=== PATIENT | female | born 1965 | race Caucasian/White ===

== ENCOUNTER 2023-08-15 16:09 | Observation (INO) | payer MEDICARE, MEDICAID, SELFPAY ==
--- NOTE | 2023-08-15 16:15 | PC.NURSE ---
Addendum entered by Viktoria Mckenzie RN 08/15/23 18:19: patient nonverbal and combative, unable to tolerate vitals upon arrival Original Note: patient nonverbal and combative, unable to tolerate vitals upon
--- NOTE | 2023-08-15 16:25 | USR_ITS ---
PROCEDURE INFORMATION: Exam: US Duplex Lower Extremity Veins, Bilateral Exam date and time: 08/15/2023 5:10 PM Age: 58 years old Clinical indication: Lymphedema; Lower extremity, bilateral; Additional info: Leg swelling TECHNIQUE: Imaging protocol: Real-time duplex ultrasound of the bilateral extremities with 2-D fleming scale, color Doppler flow and spectral waveform analysis including responses to compression and other maneuvers (when performed) with image documentation. Complete exam focused on the lower extremity veins. COMPARISON: No relevant prior studies available. FINDINGS: Right deep veins: Unremarkable. The common femoral, femoral, proximal profunda femoral, popliteal, posterior tibial and peroneal veins are patent without thrombus. Normal Doppler waveforms. Normal compressibility and/or augmentation response. Left deep veins: Unremarkable. The common femoral, femoral, proximal profunda femoral, popliteal, posterior tibial and peroneal veins are patent without thrombus. Normal Doppler waveforms. Normal compressibility and/or augmentation response. Superficial veins: Greater saphenous veins at the saphenofemoral junctions are patent bilaterally without thrombus. Soft tissues: Subcutaneous edema in the calves. US/CV venous duplex [facility] [id number] IMPRESSION: No sonographic evidence of deep venous thrombosis.
--- NOTE | 2023-08-15 16:47 | ED_ITS ---
Documented by User: Luis Bustamante DO 08/15/23 18:07 HPI - General Adult 2 General: Chief complaint: General Medical Stated complaint: SEAN WEEPING LEG WOUNDS; AUTISTIC Time Seen by Provider: 08/15/23 16:13 Source: patient and family Mode of arrival: EMS History of Present Illness: 58-year-old female who is severely autis tic presents emergency room with bilateral leg wounds and swelling. The most part she is nonverbal she understands acute expressive aphasia. He is very agitated and easily irritable at times combative. She mostly expresses things by yelling and screaming. She has had swelling along with drainage from excoriated wounds on the leg primarily on the right leg. No fever sweats or chills reported Relieving factors: none Exacerbating factors: none Associated symptoms: Deny chest pain, cough, diaphoresis, fevers/chills, rash or vomiting Treatments prior to arrival: none Review of Systems 2 Const: Denies: diaphoresis Card: Denies: chest pain GI: Denies: vomiting Skin/Breast: Denies: rash PFSH ED 2 PFSH: Medical History (Updated 08/15/23 @ 21:30 by Gregg Garcia MD) Venous stasis Autism Hypertension Social History (Updated 08/15/23 @ 21:27 by Gregg Garcia MD) Smoking and tobacco/nicotine status: never used tobacco/nicotine Alcohol intake: never Physical Exam 2 Const: ORIENTATION/CONSCIOUSNESS: Yes awake HENMT: COMMON NORMALS: normocephalic and atraumatic HEAD & SCALP: n ormocephalic and atraumatic Resp: COMMON NORMALS: normal respiratory effort, No retractions, No use of accessory muscles and clear to auscultation bilaterally AUSCULTATION: clear to auscultation bilaterally Cardio: COMMON NORMALS: regular rate, regular rhythm and No murmurs present (Cardio) RATE: regular rate RHYTHM: regular rhythm GI: COMMON NORMALS: Soft to palpation and No hepatosplenomegaly present A USCULTATION: Yes normoactive bowel sounds PALPATION: Yes Soft to palpation, No Tenderness to palpation present (GI), No Guarding due to palpation present (GI) and Yes No hepatosplenomegaly present Extremity: OTHER: Significant induration and swelling bilaterally of the lower extremities with excoriation of the dry eschar mild erythema on the right lower leg Course 2 Vital Signs: Vital signs: Vital Signs Temperature 98.0 F 08/15/23 18:56 Pulse Rate 80 08/15/23 21:57 Respiratory Rate 18 08/15/23 21:57 Blood Pressure 143/82 08/15/23 21:57 Pulse Oximetry 95 08/15/23 21:57 Oxygen Delivery Me thod Room Air 08/15/23 22:19 Oxygen Flow Rate 2 08/15/23 21:40 MDM - General Adult Medical Decision Making Care signed out to Dr. Mitchell at change of shift. See final notes for diagnosis and disposition. Lab Data 08/15/23 19:17 08/15/23 19:17 Radiology Impressions Venous Duplex 08/15/23 16:25 IMPRESSION: No sonographic evidence of deep venous thrombosis. Laboratory Results WBC 7.98 10^3/uL (3.29-11.43) 08/15/23 19:17 RBC 4.79 10^6/uL (3.85-5.65) 08/15/23 19:17 Hgb 13.10 g/dL (11.27-16.99) 08/15/23 19:17 Hct 40.5 % (36-47) 08/15/23 19:17 MCV 84.6 fl (85-98) L 08/15/23 19:17 MCH 27.3 pg (27-33) 08/15/23 19:17 MCHC 32.3 g/dL (30-55) 08/15/23 19:17 RDW 13.7 % (12.1-15.1) 08/15/23 19:17 Plt Count 172 10^3/cmm (157-399) 08/15/23 19:17 MPV 10.0 fL (7.4-10.4) 08/15/23 19:17 Neut % (Auto) 85.3 % 08/15/23 19:17 Lymph % (Auto) 7.4 % 08/15/23 19:17 [place] % (Auto) 5.1 % 08/15/23 19:17 Eos % (Auto) 1.5 % 08/15/23 19:17 Baso % (Auto) 0.4 % 08/15/23 19:17 Neut # (Auto) 6.81 10^3/uL (1.8-7.7) 08/15/23 19:17 Lymph # (Auto) 0.6 10^3/uL (0.8-4.8) L 08/15/23 19:17 [place] # (Auto) 0.4 10^3/uL (0.2-0.9) 08/15/23 19:17 Eos # (Auto) 0.1 10^3/uL (0.0-0.8) 08/15/23 19:17 Baso # (Auto) 0.0 10^3/uL (0.0-0.1) 08/15/23 19:17 Nucleated RBC % (auto) 0 % 08/15/23 19:17 Nucleated RBCs # 0.0 /100WBC 08/15/23 19:17 Sodium 142 mmol/L (136-145) 08/15/23 19:17 Potassium 4.0 mmol/L (3.5-5.1) 08/15/23 19:17 Chloride 103 mmol/L (98-107) 08/15/23 19:17 Carbon Dioxide 29 mmol/L (22-29) 08/15/23 19:17 Anion Gap 14.0 (5-19) 08/15/23 19:17 BUN 14 mg/dL (6-20) 08/15/23 19:17 Creatinine 0.7 mg/dL (0.5-0.9) 08/15/23 19:17 GFR Calculation 86.6 mL/min (90-130) L 08/15/23 19:17 Glucose 115 mg/dL (65-115) 08/15/23 19:17 Calculated Osmolality 295 mOsm/kg (285-295) 08/15/23 19:17 Lactic Acid 0.8 mmol/L (0.5-2.2) 08/15/23 19:17 Calcium 8.8 mg/dL (8.5-10.5) 08/15/23 19:17 Total Bilirubin 0.4 mg/dL (0.15-1.2) 08/15/23 19:17 AST 14 U/L (0-32) 08/15/23 19:17 ALT 11 U/L (0-33) 08/15/23 19:17 Alkaline Phosphatase 98 U/L (35-105) 08/15/23 19:17 C-Reactive Protein 30.2 mg/L (0.0-4.9) H 08/15/23 19:17 NT-Pro-B Natriuret Pep 130 pg/mL (0-125) H 08/15/23 20:24 Total Protein 8.4 g/dL (6.6-8.7) 08/15/23 19:17 Albumin 3.8 g/dL (3.5-5.2) 08/15/23 19:17 Globulin 4.6 g/dL (1.3-4.6) 08/15/23 19:17 TSH 2.91 uIU/mL (0.27-4.20) 08/15/23 20:24 XR interpretation done by ED provider, pending radiology final review Discharge Plan Discharge Patient Disposition: Placed in Observation Admit Provider: Gregg Garcia Clinical Impression: Cellulitis of leg, right Coding Level of Care Code ED Endocrinology Physician for Chg Fwd Documented by User: Clint Mitchell, 08/15/23 22:51 HPI - General Adult 2 General: Chief complaint: General Medical Stated complaint: SEAN WEEPING LEG WOUNDS; AUTISTIC Time Seen by Provider: 08/15/23 16:13 [facility] ED 2 PFSH: Medical History (Updated 08/15/23 @ 21:30 by Gregg Garcia MD) Venous stasis Autism Hypertension Social History (Updated 08/15/23 @ 21:27 by Gregg Garcia MD) Smoking and tobacco/nicotine status: never used tobacco/nicotine Alcohol intake: never Course 2 Vital Signs: Vital signs: Vital Signs Temperature 98.0 F 08/15/23 18:56 Pulse Rate 80 08/15/23 21:57 Respiratory Rate 18 08/15/23 21:57 Blood Pressure 143/82 08/15/23 21:57 Pulse Oximetry 95 08/15/23 21:57 Oxygen Delivery Me thod Room Air 08/15/23 22:19 Oxygen Flow Rate 2 08/15/23 21:40 MDM - General Adult Medical Decision Making Care signed out to Dr. Mitchell at change of shift. See final notes for diagnosis and disposition. 58-year-old female with significant cognitive impairment presenting with a tender, red, swollen right lower extremity. There is cellulitis surrounding some chronic stasis ulceration. She is afebrile here. White blood cell count is 8. CRP is elevated at 30. DVT ultrasound is negative. Lactic acid is 0.8. This patient has failed doxycycline for lower extremity cellulitis as an outpatient. Rash continues to spread despite compliant use. She is uncomfortable, has not slept, and is overextending resources available at home. Spoke with hospitalist. Agrees to observe the patient if IV can be established and maintained. IV is in. Vancomycin is going after blood culture. She is getting some Haldol and Ativan for agitation. Lab Data 08/15/23 19:17 08/15/23 19:17 Radiology Impressions Venous Duplex 08/15/23 16:25 IMPRESSION: No sonographic evidence of deep venous thrombosis. Laboratory Results WBC 7.98 10^3/uL (3.29-11.43) 08/15/23 19:17 RBC 4.79 10^6/uL (3.85-5.65) 08/15/23 19:17 Hgb 13.10 g/dL (11.27-16.99) 08/15/23 19:17 Hct 40.5 % (36-47) 08/15/23 19:17 MCV 84.6 fl (85-98) L 08/15/23 19:17 MCH 27.3 pg (27-33) 08/15/23 19:17 MCHC 32.3 g/dL (30-55) 08/15/23 19:17 RDW 13.7 % (12.1-15.1) 08/15/23 19:17 Plt Count 172 10^3/cmm (157-399) 08/15/23 19:17 MPV 10.0 fL (7.4-10.4) 08/15/23 19:17 Neut % (Auto) 85.3 % 08/15/23 19:17 Lymph % (Auto) 7.4 % 08/15/23 19:17 [place] % (Auto) 5.1 % 08/15/23 19:17 Eos % (Auto) 1.5 % 08/15/23 19:17 Baso % (Auto) 0.4 % 08/15/23 19:17 Neut # (Auto) 6.81 10^3/uL (1.8-7.7) 08/15/23 19:17 Lymph # (Auto) 0.6 10^3/uL (0.8-4.8) L 08/15/23 19:17 [place] # (Auto) 0.4 10^3/uL (0.2-0.9) 08/15/23 19:17 Eos # (Auto) 0.1 10^3/uL (0.0-0.8) 08/15/23 19:17 Baso # (Auto) 0.0 10^3/uL (0.0-0.1) 08/15/23 19:17 Nucleated RBC % (auto) 0 % 08/15/23 19:17 Nucleated RBCs # 0.0 /100WBC 08/15/23 19:17 Sodium 142 mmol/L (136-145) 08/15/23 19:17 Potassium 4.0 mmol/L (3.5-5.1) 08/15/23 19:17 Chloride 103 mmol/L (98-107) 08/15/23 19:17 Carbon Dioxide 29 mmol/L (22-29) 08/15/23 19:17 Anion Gap 14.0 (5-19) 08/15/23 19:17 BUN 14 mg/dL (6-20) 08/15/23 19:17 Creatinine 0.7 mg/dL (0.5-0.9) 08/15/23 19:17 GFR Calculation 86.6 mL/min (90-130) L 08/15/23 19:17 Glucose 115 mg/dL (65-115) 08/15/23 19:17 Calculated Osmolality 295 mOsm/kg (285-295) 08/15/23 19:17 Lactic Acid 0.8 mmol/L (0.5-2.2) 08/15/23 19:17 Calcium 8.8 mg/dL (8.5-10.5) 08/15/23 19:17 Total Bilirubin 0.4 mg/dL (0.15-1.2) 08/15/23 19:17 AST 14 U/L (0-32) 08/15/23 19:17 ALT 11 U/L (0-33) 08/15/23 19:17 Alkaline Phosphatase 98 U/L (35-105) 08/15/23 19:17 C-Reactive Protein 30.2 mg/L (0.0-4.9) H 08/15/23 19:17 NT-Pro-B Natriuret Pep 130 pg/mL (0-125) H 08/15/23 20:24 Total Protein 8.4 g/dL (6.6-8.7) 08/15/23 19:17 Albumin 3.8 g/dL (3.5-5.2) 08/15/23 19:17 Globulin 4.6 g/dL (1.3-4.6) 08/15/23 19:17 TSH 2.91 uIU/mL (0.27-4.20) 08/15/23 20:24 Discharge Plan Discharge Patient Disposition: Placed in Observation Admit Provider: Gregg Garcia Clinical Impression: Cellulitis of leg, right Coding Level of Care Code ED Endocrinology Physician for Monae Willoughby
[2023-08-15] MEDS: ziprasidone 20 mg/mL SDV IM (17:05)
[2023-08-15] MEDS: water for injection-sterile 10 ML 1.19999999999999996 ML (17:05)
[2023-08-15 18:56] VITALS: BP 198/119; PULSE 87; RESP 18; TEMP 36.7; O2SAT 97
[2023-08-15 19:22] LABS: Basophils % 0.4 %; Eosinophils # 0.1 10^3/uL (0.0-0.8); Eosinophils % 1.5 %; Hematocrit 40.5 % (36-47); Lymphocytes # 0.6 10^3/uL (0.8-4.8); Lymphocytes % 7.4 %; Mean Corpuscular HGB Conc 32.3 g/dL (30-55); Mean Corpuscular Hemoglobin 27.3 pg (27-33); Mean Corpuscular Volume 84.6 fl (85-98); Monocytes # 0.4 10^3/uL (0.2-0.9); Monocytes % 5.1 %; Neutrophils # 6.81 10^3/uL (1.8-7.7); Neutrophils % 85.3 %; Nucleated Red Blood Cells % 0 %; Platelet Count 172 10^3/cmm (157-399); Red Blood Count 4.79 10^6/uL (3.85-5.65); Red Cell Distribution Width 13.7 % (12.1-15.1); White Blood Count 7.98 10^3/uL (3.29-11.43)
[2023-08-15 19:40] LABS: Alanine Aminotransferase 11 U/L (0-33); Albumin Level 3.8 g/dL (3.5-5.2); Alkaline Phosphatase 98 U/L (35-105); Aspartate Amino Transferase 14 U/L (0-32); Blood Urea Nitrogen 14 mg/dL (6-20); C Reactive Protein 30.2 mg/L (0.0-4.9); Calcium 8.8 mg/dL (8.5-10.5); Carbon Dioxide 29 mmol/L (22-29); Chloride 103 mmol/L (98-107); Globulin 4.6 g/dL (1.3-4.6); Glomerular Filtration Rate 86.6 mL/min (90-130); Glucose 115 mg/dL (65-115); Osmolality Calculated 295 mOsm/kg (285-295); Sodium 142 mmol/L (136-145); Total Bilirubin 0.4 mg/dL (0.15-1.2); Total Protein 8.4 g/dL (6.6-8.7)
[2023-08-15 20:48] LABS: Lactic Sepsis W/Reflex 0.8 mmol/L (0.5-2.2)
[2023-08-15] MEDS: LORazepam 2 mg/mL INJ 10 mL MDV IVP (20:57)
[2023-08-15] MEDS: haloperidol inj 5 mg/mL INJ 1 mL IVP (20:57)
[2023-08-15 20:58] LABS: NT Pro B Type Natriuretic Pept 130 pg/mL (0-125)
[2023-08-15] MEDS: vancomycin 1,250 MG/250 ML PIGGYBACK 250 MG IV (21:01)
--- NOTE | 2023-08-15 21:24 | P.HP_ITS ---
Providers/Chief Complaint 2 Admitting Physician: Gregg Garcia MD Chief Complaint: SEAN WEEPING LEG WOUNDS; AUTISTIC History of Present Illness Luana Stauffer is a 58 year old female with autism, lymphedema, history of hypertension who presents to the emergency department with complaints of scabbing and redness to her right erivn that is not improving after 7 days of doxycycline. He has not had any fevers at home. She is difficult to examine, secondary to her severe autism. She does not communicate verbally, but often by pointing. She is not on any diuretics currently. Family relates she has been sleeping with her legs down lately and they believe that is why the swelling is worse than usual. Review of Systems 2 General: Reports: ROS unobtainable due to mental status Medications/Allergies Allergies Allergy/AdvReac Type Severity Reaction Status Date / Time No Known Allergies Allergy Verified 08/15/23 16:42 PFSH Acute 2 PFSH: Medical History (Updated 08/15/23 @ 21:30 by Gregg Garcia MD) Venous stasis Autism Hypertension Social History (Updated 08/15/23 @ 21:27 by Gregg Garcia MD) Smoking and tobacco/nicotine status: never used tobacco/nicotine Alcohol intake: never Vitals/I&O/Wt Last Vital Signs Temp 98.0 F 08/15/23 18:56 Pulse 87 08/15/23 18:56 Resp 18 08/15/23 18:56 BP 198/119 08/15/23 18:56 Pulse Ox 97 08/15/23 18:56 O2 Del Method Room Air 08/15/23 18:56 08/15/23 08/15/23 08/15/23 06:59 14:59 22:59 Intake Total Balance Physical Exam 2 Narrative: General exam demonstrates a white female, somewhat [place] now she has received some benzodiazepine, and Haldol. Initial blood pressure elevated but no other is taken. HEENT: Atraumatic normocephalic. Oropharynx unable to be examined Neck obese, soft Cardiovascular regular rate and rhythm, no murmur Lungs clear no wheezing or crackles Abdomen is soft. Pannus with some edema. Some excoriations over it. Extremities show 1+ edema bilaterally. Some erythema surrounding excoriations and scabs right ervin approximately 12 x 10 cm. Distal cap refill intact. Neuro no obvious focal deficits Skin see extremity exam Data 08/15/23 19:17 08/15/23 19:17 Other Labs: CRP is 30 LFTs are normal BNP 130 Venous duplex no evidence of DVT Micro: Microbiology 08/15/23 20:25 Blood Culture - Preliminary Blood SPECIMEN COLLECTED A&P Assessment and plan (1) Cellulitis of leg, right: Patient with cellulitis of the right lower extremity. She has not had any fever. White count is not abnormal. According to family, area is not improving, perhaps slightly worse despite 1 week of doxycycline. Observation status, failure to improve on outpatient antibiotics that are appropriate. Initiate vancomycin Blood cultures and lactate were drawn. Lactate was normal (2) Edema: Family indicates some lymphedema I cannot completely rule out diastolic heart failure It will be difficult to get any kind of echocardiogram on her. Will obtain a chest x-ray Will initiate Lasix. This could help wound healing if edema is less. Assess tomorrow what p.o. dose she should be initiated on along with potassium. 40 mg IV will be given now. (3) Hypertension: 1 blood pressure that has been obtained was high. She was on blood pressure and medicine in the past. Repeat blood pressure, consideration of starting blood pressure medicine if needed (4) Autism: Patient with significant behaviors. She is on some Seroquel at night. I visited briefly with the family regarding the potential for other medication day and night such as Risperdal or Zyprexa. They will consider. She is just got some Haldol and Ativan, and got Geodon earlier. Plan Full code Lovenox for DVT prophylaxis, she will not tolerate SCDs nor should it be put on her area of cellulitis. Attestations 2 Medical Necessity Statement*: Will need less than 2 midnight stay for evaluation and treatment of cellulitis not responsive to outpatient antibiotics and significant lower extremity edema. Diagnoses Cellulitis of leg, right L03.115 Edema R60.9 Hypertension I10 Autism F84.0 Time Spent (min) 54
--- NOTE | 2023-08-15 21:30 | XRR_ITS ---
PROCEDURE INFORMATION: Exam: XR Chest Exam date and time: 08/15/2023 9:31 PM Age: 58 years old Clinical indication: Other: Elevated bnp TECHNIQUE: Imaging protocol: Radiologic exam of the chest. Views: 1 view. COMPARISON: No relevant prior studies available. FINDINGS: Limitations: Underpenetration and patient rotation. Lungs: Mild interstitial prominence and bronchial wall thickening are nonspecific though compatible with pulmonary edema, particularly in the setting of elevated BNP. No consolidation. Pleural spaces: No definitive pleural effusions. No pneumothorax. Heart/Mediastinum: No obvious cardiomediastinal abnormality. Bones/joints: No acute osseous abnormalities are seen. XR/XR chest 1V portable [id number] IMPRESSION: Mild interstitial prominence and bronchial wall thickening are nonspecific though compatible with pulmonary edema in the setting of elevated BNP.
[2023-08-15 21:40] VITALS: BP 143/82; PULSE 80; RESP 18; O2SAT 97
[2023-08-15 21:57] VITALS: BP 143/82; PULSE 80; RESP 18; O2SAT 95
[2023-08-15] MEDS: FUROsemide 10 mg/mL SDV 4mL 40 MG IVP (22:01)
[2023-08-15 22:19] VITALS: BMI 64.7
[2023-08-15 22:21] LABS: Thyroid Stimulating Hormone 2.91 uIU/mL (0.27-4.20)
[2023-08-15] MEDS: enoxaparin 40 mg/0.4 mL Syringe SUBCUT (23:13)
[2023-08-16] VITALS (7 sets, daily range): BP systolic 106–161; BP diastolic 68–89; PULSE 75–94; RESP 18–19; TEMP 36.5–37.4; O2SAT 90–92
[2023-08-16 07:20] LABS: Basophils % 0.5 %; Eosinophils # 0.3 10^3/uL (0.0-0.8); Eosinophils % 3.3 %; Hematocrit 44.4 % (36-47); Lymphocytes % 12.9 %; Mean Corpuscular HGB Conc 30.9 g/dL (30-55); Mean Corpuscular Hemoglobin 27.5 pg (27-33); Mean Platelet Volume 10.7 fL (7.4-10.4); Monocytes # 0.6 10^3/uL (0.2-0.9); Neutrophils # 5.68 10^3/uL (1.8-7.7); Neutrophils % 74.9 %; Nucleated Red Blood Cells % 0 %; Platelet Count 187 10^3/cmm (157-399); Red Blood Count 4.99 10^6/uL (3.85-5.65); Red Cell Distribution Width 13.9 % (12.1-15.1); White Blood Count 7.59 10^3/uL (3.29-11.43)
--- NOTE | 2023-08-16 07:26 | P.PN_ITS ---
Documented by User: PEDRO Shahid [email or web address] 08/16/23 09:07 Subjective 2 Subjective: Ms. Stauffer was seen this morning, sitting at the side of her bed, conversation was limited to yes and no, relative to her prior history of autism. She has recently gotten up to the commode, nursing reported she was stable on her feet, and did not appear to be in significant pain. Family at bedside, do not have any concerns this morning. No acute events overnight per nursing. Medications: Reviewed: Yes Vitals/I&O/Wt Last Vital Signs Temp 97.8 F 08/16/23 04:00 Pulse 86 08/16/23 04:00 Resp 18 08/16/23 04:00 BP 132/83 08/16/23 04:00 Pulse Ox 90 08/16/23 04:00 O2 Del Method Room Air 08/16/23 04:00 O2 Flow Rate 2 08/15/23 21:40 08/15/23 08/16/23 08/16/23 22:59 06:59 14:59 Intake Total 260 / 260 Balance 260 / 260 Weight last 48 hrs Weight 306 lb 4 oz Weight 309 lb 14.4 oz Physical Exam 2 Narrative: General: Comfortable appearing female, sitting at the side of her bed, recently up to the commode, stable on her feet, does not appear to be in pain, conversation limited to yes/no. HEENT: Head atraumatic, normocephalic, to visual inspection. PERRL CV: Regular rate and rhythm, no murmurs rubs or gallops noted. Pulm: Lungs clear to auscultation bilaterally. GI: Abdomen soft, nontender, obese, bowel sounds present in all quadrants. Extremities: Right lower extremity continues to show erythema, it is warm to the touch. There are multiple scabs, and excoriations over her right lower extremity, however there is no drainage or bleeding noted. +1 edema noted. Bilateral lower extremity pulses intact. She is able to move her toes and her ankle without discomfort. All other extremities normal. Data 08/16/23 06:58 08/16/23 06:58 Other Labs: CRP is 30 LFTs are normal BNP 130 Venous duplex no evidence of DVT Blood cultures: Collected?pending. Chest x-ray: Personally reviewed, reveals the lung gonzalez look clear, possible large cardiac silhouette, right lung field shows prominent bronchial cuffing, possibly indicative of CHF. Micro: Microbiology 08/16/23 00:00 Blood Culture - Preliminary Blood SPECIMEN COLLECTED 08/15/23 20:25 Blood Culture - Preliminary Blood SPECIMEN COLLECTED A&P Assessment and plan (1) Cellulitis of leg, right: Patient with cellulitis of the right lower extremity. She has not had any fever. White count is not abnormal. According to family, area is not improving, perhaps slightly worse despite 1 week of doxycycline. Observation status, failure to improve on outpatient antibiotics that are appropriate. Continue vancomycin Blood cultures and lactate were drawn. Lactate was normal Blood cultures still pending, will adjust antibiotic course as necessary when blood cultures are received. (2) Edema: Family indicates some lymphedema I cannot completely rule out diastolic heart failure It will be difficult to get any kind of echocardiogram on her. Chest x-ray shows bronchial wall thickening/cuffing in the right lung, bilateral lungs are otherwise clear, possible large cardiac silhouette. With an elevated BNP this might be suggestive of CHF. Continue Lasix. This could help wound healing if edema is less. Assess tomorrow what p.o. dose she should be initiated on along with potassium. 40 mg IV will be given now. (3) Hypertension: Patient blood pressures trend show multiple hypertensive readings, she was on blood pressure and medicine in the past. Will continue to monitor, consider starting an SHITAL/ARB, if trend continues. (4) Autism: Patient with significant behaviors. She is on some Seroquel at night. I visited briefly with the family regarding the potential for other medication day and night such as Risperdal or Zyprexa. They will consider. She is just got some Haldol and Ativan, and got Geodon earlier. These medications have been discontinued. Scheduled olanzapine 2.5 mg, p.o., twice daily. This should help with patient with anxious behaviors. Plan Full code Lovenox for DVT prophylaxis, she will not tolerate SCDs nor should it be put on her area of cellulitis. Coding Level of Care Code 02400 Diagnoses Cellulitis of leg, right L03.115 Edema R60.9 Hypertension I10 Autism F84.0 Time Spent (min) 29 Documented by User: Gregg Garcia MD 08/16/23 09:36 Subjective 2 Subjective: Ms. Stauffer was seen this morning, sitting at the side of her bed, conversation was limited to yes and no, relative to her prior history of autism. She has recently gotten up to the commode, nursing reported she was stable on her feet, and did not appear to be in significant pain. Family at bedside, do not have any concerns this morning. No acute events overnight per nursing. Discussed with him behaviors, risks of Zyprexa including increased risk of sudden cardiac . They want to go ahead and transition to this and away from Seroquel. Physical Exam 2 Narrative: General: Comfortable appearing female, sitting at the side of her bed, recently up to the commode, stable on her feet, does not appear to be in pain, conversation limited to yes/no. HEENT: Head atraumatic, normocephalic, to visual inspection. PERRL CV: Regular rate and rhythm, no murmurs rubs or gallops noted. Pulm: Lungs clear to auscultation bilaterally. GI: Abdomen soft, nontender, obese, bowel sounds present in all quadrants. Extremities: Right lower extremity continues to show erythema, it is warm to the touch. There are multiple scabs, and excoriations over her right lower extremity, however there is no drainage or bleeding noted. +1 edema noted. Erythema is noted consistent with some degree of cellulitis. Bilateral lower extremity pulses intact. She is able to move her toes and her ankle without discomfort. All other extremities normal. Data 08/16/23 06:58 08/16/23 06:58 A&P Assessment and plan (1) Cellulitis of leg, right: Patient with cellulitis of the right lower extremity. She has not had any fever. White count is not abnormal. According to family, area is not improving, perhaps slightly worse despite 1 week of doxycycline. Continue vancomycin Blood cultures and lactate were drawn. Lactate was normal Blood cultures still pending, will adjust antibiotic course as necessary when blood cultures are received. No evidence of sepsis. (2) Edema: Family indicates some lymphedema She appears to have acute diastolic heart failure Chest x-ray showed suggests pulmonary congestion consistent with heart failure and some cardiomegaly. Continue Lasix IV BMP in the morning She is more cooperative now, will attempt to get an echocardiogram For likely acute diastolic heart failure also add losartan 25 mg daily (3) Hypertension: (4) Autism: Patient with significant behaviors. She is on some Seroquel at night. I visited briefly with the family regarding the potential for other medication day and night such as Risperdal or Zyprexa. Initiate Zyprexa twice daily today for behaviors Hopefully this will help aggressive behaviors. Plan Full code Lovenox for DVT prophylaxis, she will not tolerate SCDs nor should it be put on her area of cellulitis. Probable discharge tomorrow Attestations 2 Medical Necessity Statement*: Needs continued hospitalization, for further diuresis secondary to lower extremity edema suspect acute diastolic heart failure. Diagnoses Cellulitis of leg, right L03.115 Edema R60.9 Hypertension I10 Autism F84.0 Time Spent (min) 29
--- NOTE | 2023-08-16 07:32 | USCV_ITS ---
Luana Stauffer Age: 58 Gender: F : 1965 Exam Date: 08/16/2023 13:56 Ordering Phys: Gregg Garcia MD Technologist: Exam Location: [facility] Indication: chf BP: 123 / 74 HR: 96 Rhythm: Sinus Technical Quality: Adequate MEASUREMENTS (Male / Female) Normal Values 2D ECHO LV Diastolic Diameter PLAX 3.4 cm 4.2 - 5.9 / 3.9 - 5.3 cm IVS Diastolic Thickness 1.9 cm 0.6 - 1.0 / 0.6 - 0.9 cm IVS Systolic Thickness 1.9 cm LVPW Diastolic Thickness 1.9 cm 0.6 - 1.0 / 0.6 - 0.9 cm LVPW Systolic Thickness 2.0 cm LVOT Diameter 2.2 cm LV Ejection Fraction 2D Teich 53.6 % LV Ejection Fraction MOD 2C 46.0 % LV Ejection Fraction 2C AL 44.2 % LA Diameter 2.7 cm M-MODE LA Ao Ratio MM 1.4 AV Cusp Separation MM 2.2 cm DOPPLER AV Peak Velocity 246.3 cm/s LVOT Peak Velocity 110.0 cm/s AV Area Cont Eq vti 1.4 cm squared AV Area Cont Eq pk 1.7 cm squared MV Peak Velocity 149.0 cm/s MV Area PHT 6.4 cm squared Mitral E to A Ratio 1.3 TR Peak Velocity 150.0 cm/s TR Peak Gradient 9.0 mmHg TV Peak E Velocity 90.0 cm/s Right Atrial Pressure 3.0 mmHg Pulmonary Artery Systolic Pressu 12.0 mmHg PV Peak Velocity 164.0 cm/s FINDINGS Left Ventricle Possibly normal LV size with diminished ejection fraction of 46%. Mild concentric left and hypertrophy. Right Ventricle The RV appears to be of normal size with a slightly diminished ejection fraction Right Atrium Possibly normal size Left Atrium Mildly increased left atrial size. Mitral Valve Morphology could not be delineated well Aortic Valve Peak velocity of 2.64 m/s. Features of mild to moderate aortic valve stenosis with a valve area of 1.43 cm squared Tricuspid Valve Morphology could not be delineated well Pulmonic Valve Pulmonic valve not well visualized. Pericardium No pericardial effusion. Aorta Not visualized well IVC Inferior vena cava not visualized. CONCLUSIONS (Echo contrast - Optison was used to delineate the endocardium and to estimate the LV ejection fraction) Possibly normal LV size with a diminished ejection fraction of around 46%. Mild concentric left and hypertrophy. Features of mild to moderate aortic valve stenosis with a valve area of 1.43 cm squared. There is no pericardial effusion. Technically very difficult study because of the poor ultrasonic window. Dr Lalitha Lara MD FACC (Electronically Signed) Final Date: 16 Aug 2023 21:01 S
[2023-08-16 07:43] LABS: Blood Urea Nitrogen 12 mg/dL (6-20); Calcium 9.2 mg/dL (8.5-10.5); Carbon Dioxide 23 mmol/L (22-29); Chloride 103 mmol/L (98-107); Creatinine Clr Calc Pharmacy 196.7934; Glomerular Filtration Rate 86.6 mL/min (90-130); Glucose 92 mg/dL (65-115); Osmolality Calculated 289 mOsm/kg (285-295); Sodium 140 mmol/L (136-145)
[2023-08-16 07:46] LABS: Anion Gap 17.8 (5-19); Potassium 3.8 mmol/L (3.5-5.1)
[2023-08-16] MEDS: vancomycin 1,750 MG/350 ML PIGGYBACK 233.330000000000013 MG IV (08:15)
[2023-08-16] MEDS: OLANZapine 5 mg TABLET 2.5 MG PO ×2 (08:15→17:02)
[2023-08-16] MEDS: FUROsemide 10 mg/mL SDV 4mL 40 MG IVP ×2 (09:08→20:10)
[2023-08-16] MEDS: potassium chloride ER 20 mEq Tablet PO ×2 (09:09→17:01)
[2023-08-16] MEDS: losartan 50 mg Tablet 25 MG PO (11:22)
[2023-08-16] MEDS: vancomycin 1,750 MG/350 ML PIGGYBACK 233 MG IV (20:17)
[2023-08-17 04:00] VITALS: BP 160/94; PULSE 68; RESP 19; TEMP 36.6; O2SAT 91
[2023-08-17 06:16] LABS: Basophils % 0.6 %; Eosinophils # 0.3 10^3/uL (0.0-0.8); Eosinophils % 4.3 %; Hematocrit 41.5 % (36-47); Lymphocytes # 1.1 10^3/uL (0.8-4.8); Lymphocytes % 15.4 %; Mean Corpuscular HGB Conc 31.8 g/dL (30-55); Mean Platelet Volume 10.1 fL (7.4-10.4); Monocytes # 0.6 10^3/uL (0.2-0.9); Monocytes % 7.9 %; Neutrophils # 5.16 10^3/uL (1.8-7.7); Neutrophils % 71.5 %; Nucleated Red Blood Cells % 0 %; Platelet Count 195 10^3/cmm (157-399); Red Blood Count 4.88 10^6/uL (3.85-5.65); White Blood Count 7.21 10^3/uL (3.29-11.43)
--- NOTE | 2023-08-17 06:32 | PC.NURSE ---
The pt refused to go to bed to elevate her legs all throughout the night with many attempts failed.
[2023-08-17 06:35] LABS: Anion Gap 14.5 (5-19); Blood Urea Nitrogen 13 mg/dL (6-20); Calcium 9.4 mg/dL (8.5-10.5); Carbon Dioxide 30 mmol/L (22-29); Chloride 99 mmol/L (98-107); Creatinine Clr Calc Pharmacy 172.1942; Glomerular Filtration Rate 74.2 mL/min (90-130); Glucose 94 mg/dL (65-115); Osmolality Calculated 290 mOsm/kg (285-295); Potassium 3.5 mmol/L (3.5-5.1); Sodium 140 mmol/L (136-145)
[2023-08-17 08:06] VITALS: BP 142/85; PULSE 66; RESP 20; TEMP 36.6; O2SAT 92
--- NOTE | 2023-08-17 08:10 | PM.DCS ---
Discharge Providers Date of Admission: 08/15/23 21:29 Date of Discharge: August 17, 2023 Attending Provider at Admission: Gregg Garcia MD Attending Provider at Discharge: Gregg Garcia MD Diagnoses at Discharge Discharge Diagnosis (1) Cellulitis of leg, right: Status: Acute (2) Edema: Status: Acute (3) Hypertension: Status: Acute (4) Autism: Status: Acute Reason for Visit Reason for Visit: SEAN WEEPING LEG WOUNDS; AUTISTIC Hospital Course Hospital Course Luana is a 58-year-old female with autism who presents with leg swelling, and cellulitis of her right lower extremity that had not been responsive to doxycycline. She has not had any fevers. She did not appear short of breath. She had been having some behavior issues lately. She was diagnosed with cellulitis, and eventually venous stasis with concern of acute diastolic heart failure. She was diuresed while in the hospital and had slight improvement to the lower extremity edema some of which was chronic. Cellulitis improved significantly. Secondary to behavior problems after discussing risks and benefits including cardiac issues with cardiac she was initiated on Zyprexa 2.5 mg twice daily. Secondary to elevated blood pressure losartan was initiated at low-dose. She tolerated all of these medication changes without difficulty, and it was thought she could be discharged home on August 16. At that time cellulitis was resolving. She will finish 5 more days of doxycycline and Augmentin. Edema was still present, but slightly better. She will continue on Bumex, with low-dose potassium and get a BMP on follow-up with her primary care provider in 3 to 5 days. She was placed on low-dose losartan as stated above for blood pressure and this may need to be adjusted in the future. Other studies done included an echocardiogram demonstrating preserved EF, mild to moderate aortic stenosis which will require follow-up with her primary. A venous duplex was also done which was negative for DVT. I discussed her care with her mother, who agreed with the plan and was able to ask questions. They were instructed to elevate her legs is much as possible. Physical Exam Narrative: General exam is white female, no distress Neck is supple Cardiovascular regular rate and rhythm Lungs clear Abdomen is soft Extremities venous stasis changes with at least 2+ edema lower extremities. Discharge Data Studies Completed and Pending Completed Studies During Hospitalization Category Date Time Status XR chest 1V portable [id number] Stat Exams 08/15/23 21:30 Completed CV. echo wo/w contrast [id number] Routine Ultrasound 08/16/23 07:32 Completed US venous duplex lower extremity bilat [CV venous Ultrasound 08/15/23 16:25 [place] [id number]] Stat Pending at discharge Category Date Time Status Blood Culture Stat Lab 08/15/23 20:25 Results Vancomycin Trough Timed Lab 08/17/23 19:00 Ordered Radiology Impressions Venous Duplex 08/15/23 16:25 IMPRESSION: No sonographic evidence of deep venous thrombosis. Chest X-Ray 08/15/23 21:30 IMPRESSION: Mild interstitial prominence and bronchial wall thickening are nonspecific though compatible with pulmonary edema in the setting of elevated BNP. Laboratory Results WBC 7.21 10^3/uL (3.29-11.43) 08/17/23 05:59 RBC 4.88 10^6/uL (3.85-5.65) 08/17/23 05:59 Hgb 13.20 g/dL (11.27-16.99) 08/17/23 05:59 Hct 41.5 % (36-47) 08/17/23 05:59 MCV 85.0 fl (85-98) 08/17/23 05:59 MCH 27.0 pg (27-33) 08/17/23 05:59 MCHC 31.8 g/dL (30-55) 08/17/23 05:59 RDW 14.0 % (12.1-15.1) 08/17/23 05:59 Plt Count 195 10^3/cmm (157-399) 08/17/23 05:59 MPV 10.1 fL (7.4-10.4) 08/17/23 05:59 Neut % (Auto) 71.5 % 08/17/23 05:59 Lymph % (Auto) 15.4 % 08/17/23 05:59 [place] % (Auto) 7.9 % 08/17/23 05:59 Eos % (Auto) 4.3 % 08/17/23 05:59 Baso % (Auto) 0.6 % 08/17/23 05:59 Neut # (Auto) 5.16 10^3/uL (1.8-7.7) 08/17/23 05:59 Lymph # (Auto) 1.1 10^3/uL (0.8-4.8) 08/17/23 05:59 [place] # (Auto) 0.6 10^3/uL (0.2-0.9) 08/17/23 05:59 Eos # (Auto) 0.3 10^3/uL (0.0-0.8) 08/17/23 05:59 Baso # (Auto) 0.0 10^3/uL (0.0-0.1) 08/17/23 05:59 Nucleated RBC % (auto) 0 % 08/17/23 05:59 Nucleated RBCs # 0.0 /100WBC 08/17/23 05:59 Sodium 140 mmol/L (136-145) 08/17/23 05:59 Potassium 3.5 mmol/L (3.5-5.1) 08/17/23 05:59 Chloride 99 mmol/L (98-107) 08/17/23 05:59 Carbon Dioxide 30 mmol/L (22-29) H 08/17/23 05:59 Anion Gap 14.5 (5-19) 08/17/23 05:59 BUN 13 mg/dL (6-20) 08/17/23 05:59 Creatinine 0.8 mg/dL (0.5-0.9) 08/17/23 05:59 GFR Calculation 74.2 mL/min (90-130) L 08/17/23 05:59 Glucose 94 mg/dL (65-115) 08/17/23 05:59 Calculated Osmolality 290 mOsm/kg (285-295) 08/17/23 05:59 Lactic Acid 0.8 mmol/L (0.5-2.2) 08/15/23 19:17 Calcium 9.4 mg/dL (8.5-10.5) 08/17/23 05:59 Total Bilirubin 0.4 mg/dL (0.15-1.2) 08/15/23 19:17 AST 14 U/L (0-32) 08/15/23 19:17 ALT 11 U/L (0-33) 08/15/23 19:17 Alkaline Phosphatase 98 U/L (35-105) 08/15/23 19:17 C-Reactive Protein 30.2 mg/L (0.0-4.9) H 08/15/23 19:17 NT-Pro-B Natriuret Pep 130 pg/mL (0-125) H 08/15/23 20:24 Total Protein 8.4 g/dL (6.6-8.7) 08/15/23 19:17 Albumin 3.8 g/dL (3.5-5.2) 08/15/23 19:17 Globulin 4.6 g/dL (1.3-4.6) 08/15/23 19:17 TSH 2.91 uIU/mL (0.27-4.20) 08/15/23 20:24 Vitals Last Vital Signs Temp 97.9 F 08/17/23 08:06 Pulse 66 08/17/23 08:06 Resp 20 H 08/17/23 08:06 BP 142/85 08/17/23 08:06 Pulse Ox 92 08/17/23 08:06 O2 Del Method Room Air 08/17/23 08:06 O2 Flow Rate 2 08/15/23 21:40 Discharge Plan Discharge Patient Disposition: Home Condition: Stable Prescriptions: New losartan 50 mg Tablet 25 mg PO DAILY Qty: 30 0RF amoxicillin-pot clavulanate 875-125 mg tablet 1 tab PO BID Qty: 10 0RF olanzapine 5 mg Tablet 2.5 mg PO BID Qty: 30 0RF bumetanide 0.5 mg tablet 0.5 mg PO DAILY Qty: 30 0RF doxycycline monohydrate 100 mg capsule 100 mg PO BID Qty: 10 0RF potassium chloride 10 mEq tablet extended release 10 meq PO DAILY Qty: 30 0RF Continued trazodone 50 mg tablet 50 mg PO BEDTIME Discontinued quetiapine 25 mg tablet 25 mg PO DAILY doxycycline hyclate 100 mg capsule 100 mg PO DAILY mupirocin 2 % ointment 1 applic TOPICAL TID Discharge Orders: Discharge Order (Routine); Ordered 08/17/23 Ordered By: Gregg Garcia Referrals: Sy Lerma FNP [Referring] - 08/23/23 11:20 am (BMP on follow-up) Discharge Diet: Cardiac Discharge Activity: Increase activity as tolerated Patient Instructions: Opioid Safety Activity Restrictions/Additional Instructions: Low-salt diet Cover wound with Telfa if patient is scratching at wound. Finish 5 more days of antibiotics as prescribed Follow-up with your primary care provider 3 to 5 days with a BMP Return for any concerns Note that you were diagnosed with mild to moderate aortic stenosis and this should be followed up in the future Elevate legs when possible. Discharge Attestations Time Spent in Discharge Care*: greater than 30 min Quality Metrics Clinical Quality Measures [ No reported AMI, CVA or VTE this stay] Coding Level of Care Code Acute Code for Chg Fwd Diagnoses Cellulitis of leg, right L03.115 Edema R60.9 Hypertension I10 Autism F84.0 Time Spent (min) 36
[2023-08-17 09:15] VITALS: BP 142/85
[2023-08-17] MEDS: losartan 50 mg Tablet 25 MG PO (09:15)
[2023-08-17] MEDS: FUROsemide 10 mg/mL SDV 4mL 40 MG IVP (09:15)
[2023-08-17] MEDS: potassium chloride ER 20 mEq Tablet PO (09:15)
[2023-08-17] MEDS: OLANZapine 5 mg TABLET 2.5 MG PO (09:15)
[2023-08-17 11:09] VITALS: BP 142/85
== END 2023-08-17 11:11 | disposition home or self-care (01) ==
LOC: ER 20:53 → MEDSURG 21:29
PROVIDERS: Family Medicine; Admitting Provider Internal Medicine; Emergency Provider Emergency Medicine; Visit Provider Internal Medicine
DX: L03.115 Cellulitis of right lower limb (principal); R60.9 Edema, unspecified; I10 Essential (primary) hypertension; F84.0 Autistic disorder
CPT/HCPCS: 36415; 71045; 80048; 80053; 83605; 83880; 84443; 85025; 86140; 87040; 93970; 96365; 96366; 96372; 96375; 96376; 99285; C8929; G0378; J1630; J1650; J1940; J2060; J3370; J3372; J3486